=== PATIENT | male | born 1985 | race Caucasian/White ===

== ENCOUNTER 2023-08-10 20:57 | Emergency (ER) | payer OTHER, SELFPAY ==
[2023-08-10 20:58] VITALS: BP 138/83
--- NOTE | 2023-08-10 21:47 | ED.GENMED ---
History of Present Illness
General
Chief Complaint: Musculo-Skeletal Complaint
Source: patient
Time Seen by Provider: 08/10/23 21:16
Travel History
Have you had any contact with someone who has COVID-19?: No
Do you have any symptoms of coronavirus? Fever > 100 degrees, chills, cough, shortness of breath, sore throat, loss of taste or smell, muscle aches, or headache?: No
History of Present Illness
History of Present Illness:
38-year-old male with past medical history of asthma presenting the emergency department for evaluation of left suspected biceps tendon injury after he was at the gym and there was someone behind him who was squatting and they unfortunately lost her
balance and patient attempted to catch the squat bar with weight on it stating it was around 300 pounds and while attempting to catch the bar felt a pop and noticed a immediate deformity to his left bicep. Patient is having pain with any attempted
range of motion at the left elbow at his bicep. He denies any previous history of injury or surgery. No other concerns at this time.
Past History
Past History
ED Past Medical History: Asthma
ED Past Surgical History: None
Social History
Tobacco: Non-smoker
Alcohol: Occasional
Drug: None
Personal:
Living: with family
Review of Systems
Review of Systems
All Other Systems: ROS reviewed and negative except as documented in HPI and ROS
Phy Exam
Physical Exam
Physical Exam:
GENERAL: Alert , in no apparent distress
EYE: conjunctiva clear
Head: Normocephalic atraumatic
NECK: Supple,
ENT: mmm.
LUNGS: no acute respiratory distress
NEUROLOGICAL: Alert and oriented
SKIN: Warm and dry, skin intact.
MUSCULOSKELETAL: Obvious deformity distal portion of the left biceps. Range of motion limited secondary to pain. Extremities otherwise neurovascular intact, warm and well-perfused.
PSYCH: Normal and appropriate interaction.
Scores
Heart Failure Risk
Heart Failure Risk Score: Not Applicable
Heart Score for Chest Pain Patients
STEMI patient?: Not applicable
Withdrawal Assessment of Alcohol
Withdrawal Assessment Completed?: Not applicable
Course
Orders/Labs/Results
Orders:
Orders
08/10/23 21:02
CR Elbow - Left Min 3 Views Urgent
Reason For Exam: pain, barbell fell onto arm
Humerus, Left 2 Views [CR Humerus - Left Min 2 Views*] Urgent
Comment:
Reason For Exam: pain, bellbar fell onto arm
08/10/23 21:49
Sling Left-Treatment ONCE
Vital Signs
Initial and Last Documented VS:
Initial Vital Signs
Temp Pulse Resp BP Pulse Ox
97.6 F 94 18 138/83 98
08/10/23 20:58 08/10/23 20:58 08/10/23 20:58 08/10/23 20:58 08/10/23 20:58
Last Documented Vital Signs
Temp Pulse Resp BP Pulse Ox
97.6 F 94 18 138/83 98
08/10/23 20:58 08/10/23 20:58 08/10/23 20:58 08/10/23 20:58 08/10/23 20:58
MDM/Problems Addressed
Differential Diagnosis Includes:
Biceps tendon rupture, fracture, dislocation
MDM/Problems Addressed:
38-year-old male present emergency department for evaluation of suspected left biceps tendon rupture. X-rays of the humerus and elbow were ordered from triage and ultimately negative for any fracture. Based off of the mechanism combined with the
physical exam findings I do suspect biceps tendon rupture to be the most likely diagnosis. Will place in sling. Information for orthopedist provided. Patient is otherwise stable for discharge home.
*Radiology
Radiology exam reviewed: preliminary read by ED provider (No fracture)
*Pulse Oximetry
Patient hypoxic: no
*Critical Care Note
Total Time (30-74mins, 75-104mins- exclusive of procedures): Not Applicable
ED Attending Note
-
Portions of this chart may have been created with voice recognition software.� Occasional wrong word or��sound alike� substitutions may have occurred due to the inherent limitations of voice recognition software.
Discharge Plan
Departure
Patient Disposition: Home (Routine Discharge)
Date of Disposition: 08/10/23
Time of Disposition: 21:48
Patient with high blood pressure during this ER visit?: No
Discharge Problem:
Biceps tendon tear
Instructions: Biceps Tendon Rupture (DC)
Referrals:
Jw Gutierrez MD [Active] - (Ortho - Call in morning for appointment)
Interventions
Interventions:
*Risk Screen - Suicide Last Done: 08/10/23 20:58
*General Assessment Last Done: 08/10/23 20:58
ED-Musculoskeletal Assessment Last Done: 08/10/23 21:27
Discharge Date and Time
Print Language: ARMENIAN
[2023-08-10 22:08] VITALS: BP 130/60
== END 2023-08-10 22:10 | disposition home or self-care (01) ==
LOC: EMR 20:57
PROVIDERS: EMERGENCY PHYSICIAN Emergency Medicine; FAMILY PHYSICIAN Family Medicine
DX: S46.212A Strain of muscle, fascia and tendon of other parts of biceps, left arm, initial encounter (principal); X50.0XXA Overexertion from strenuous movement or load, initial encounter; J45.909 Unspecified asthma, uncomplicated
CPT/HCPCS: 99283; 73060; 73080

== ENCOUNTER → 2023-08-17 08:17 | Outpatient (REF) | payer OTHER, SELFPAY | LOC: MRI 08:17 | PROVIDERS: ATTENDING PHYSICIAN Physician Assistant Surgical; FAMILY PHYSICIAN Family Medicine | DX: M25.522 Pain in left elbow (principal) | CPT/HCPCS: 73221 ==